=== PATIENT | male | born 1990 | race Caucasian/White ===

== ENCOUNTER 2024-12-08 06:59 | Emergency (ER) | payer OTHER, SELFPAY ==
[2024-12-08 07:03] VITALS: BP 150/91; PULSE 66; TEMP 36.8; O2SAT 99; BMI 26.2
--- NOTE | 2024-12-08 07:15 | ED.GENADUL1 ---
HPI HPI - General Adult General Chief complaint: Back Pain/Injury Stated complaint: MID BACK PAIN Time Seen by Provider: 12/08/24 07:08 Source: patient Mode of arrival: walk-in Limitations: no limitations History of Present Illness HPI narrative: 34-year-old male presents to the emergency department for chief complaint of back pain. It is in his thoracic area and mostly at the midline. Last night between 7 and 8:00 PM he had a backpack bug spray on with a cylinder of liquid bug spray and he was spraying it. When he took it off he felt a little bit of discomfort in the thoracic area. When he woke up at 2:00 this morning to use the bathroom he felt increased pain. He did not fall and he has no weakness or numbness in his arms or legs. No neck pain or lower back pain. No chest pain or shortness of breath. Related Data Home Medications ?Medication ?Instructions ?Recorded ?Confirmed metoprolol tartrate 25 mg tablet 25 mg PO Q12H 12/08/24 12/08/24 Previous Rx's ?Medication ?Instructions ?Recorded etodolac 300 mg capsule 300 mg PO Q6H PRN pain #20 caps 12/08/24 methocarbamol 750 mg tablet 750 mg PO Q8H #20 tabs 12/08/24 Allergies Allergy/AdvReac Type Severity Reaction Status Date / Time No Known Drug Allergies Allergy Verified 12/08/24 07:07 Opioid HPI Opioid Management Most Recent Opioid Data: Last Pain Scale 4 Today, 07:03 Review of Systems ROS Narrative A ten point review of systems is negative except as noted above. PFSH PFSH Social History Little interest or pleasure in doing things: not at all Feeling down, depressed, or hopeless: not at all Exam Narrative Exam Narrative: Nurses note and vital signs reviewed and patient is not hypoxic. General: The patient appears well and in no apparent distress. Patient is resting comfortably on cart. Skin: Warm, dry, no pallor noted. There is no rash noted. Head: Normocephalic, atraumatic Eye: Normal conjunctiva, no drainage Ears, Nose, Mouth, and Throat: oral mucosa is moist. Nares patent. Cardiovascular: Regular Rate and Rhythm Respiratory: Patient is in no distress, no accessory muscle use, lungs are clear to auscultation, no wheezing, rales or rhonchi Back: No bruise or rash. He has no tenderness in the cervical or lumbar spine. Arms and legs have full range of motion. GI: Soft and nontender Musculoskeletal: The patient has no evidence of calf tenderness, no pitting edema, symmetrical pulses noted bilaterally Neurological: Alert and oriented, normal speech Psychiatric: Cooperative Constitutional Vital Signs, click to edit/add: Last Vital Signs Temp 98.2 F 12/08/24 07:03 Pulse 66 12/08/24 07:03 Resp 18 12/08/24 07:03 BP 150/91 H 12/08/24 07:03 Pulse Ox 99 12/08/24 07:03 O2 Del Method Room Air 12/08/24 07:03 Course Vital Signs Vital signs: Vital Signs Temperature 98.2 F 12/08/24 07:03 Pulse Rate 66 12/08/24 07:03 Respiratory Rate 18 12/08/24 07:03 Blood Pressure 150/91 H 12/08/24 07:03 Pulse Oximetry 99 12/08/24 07:03 Oxygen Delivery Method Room Air 12/08/24 07:03 Temperature 98.2 F 12/08/24 07:03 Pulse Rate 66 12/08/24 07:03 Respiratory Rate 18 12/08/24 07:03 Blood Pressure 150/91 H 12/08/24 07:03 Pulse Oximetry 99 12/08/24 07:03 Oxygen Delivery Method Room Air 12/08/24 07:03 Medical Decision Making MDM Narrative Medical decision making narrative: X-rays are negative and he is treated symptomatically. He was offered IM Toradol but did not want an injection. Treatment diagnosis and follow-up were discussed with the patient. My clinical impression is that this is musculoskeletal in nature. Differential Diagnosis Differential Diagnosis: Pain, compression fracture Imaging Data Thoracic spine x-ray: Radiologist's impression: No acute findings Discharge Plan Discharge Chief Complaint: Back Pain/Injury Clinical Impression: Strain of muscle at thorax level Patient Disposition: Home, Self-Care Time of Disposition Decision: 09:30 Condition: Good Mode of Transportation: Private Vehicle Prescriptions / Home Meds: New etodolac 300 mg capsule 300 mg PO Q6H PRN (Reason: pain) Qty: 20 0RF methocarbamol 750 mg tablet 750 mg PO Q8H Qty: 20 0RF No Action metoprolol tartrate 25 mg tablet 25 mg PO Q12H Print Language: Malaysian Instructions: Muscle Strain (ED) Referrals: Kt Holbrook MD [Primary Care Provider, Family Practice] - 1 week Discharge Date/Time: 12/08/24 09:39
== END 2024-12-08 09:39 | disposition home or self-care (01) ==
PROVIDERS: Emergency Provider Emergency Medicine; PCP Family Medicine
DX: S29.012A Strain of muscle and tendon of back wall of thorax, initial encounter (principal); M54.6 Pain in thoracic spine; X50.0XXA Overexertion from strenuous movement or load, initial encounter
CPT/HCPCS: 72070; 99283

== ENCOUNTER 2025-02-28 17:05 | Emergency (ER) | payer OTHER, SELFPAY ==
[2025-02-28] VITALS (10 sets, daily range): BP systolic 143; BP diastolic 85; PULSE 74–103; TEMP 37.2; O2SAT 98; BMI 23.7
--- NOTE | 2025-02-28 17:18 | XR_ITS ---
[place] [id number] Patient Name: ROSETTA SALMERON MRN: [id number] date: 1990 Sex: M Assigned Patient Location: ED.MAIN Current Patient Location: ED.MAIN Accession/Order Number: [id number] Exam Date: 02/28/2025 18:57 Report Date: 02/28/2025 18:58 At the request of: ADIA COX Procedure: XR chest 2V Plain film chest 2 view HISTORY: Left-sided chest pain for 3 days COMPARISON: None FINDINGS: SUPPORT DEVICES: None POSTSURGICAL CHANGES: None HEART: Within normal limits PULMONARY MARY: Within normal limits MEDIASTINUM: Unremarkable LUNGS AND PLEURA: No acute lung process, pleural effusion or pneumothorax identified. BONY STRUCTURES: Intact ADDITIONAL FINDINGS None XR/XR chest 2V IMPRESSION: No acute process. Impression dictated by: Andrea Castañeda M.D. 02/28/2025 6:58 PM Dictation Location[facility] Electronically authenticated by: [id number] Y Date: 02/28/2025 18:58
--- NOTE | 2025-02-28 17:18 | ECG_ITS ---
[facility] Test Date: 2025-02-28 Pat Name: ROSETTA SALMERON Department: Room: - Gender: Male Size Marker: : 1990 Requested By: [id number] Order Number: [id number] Reading MD: YOVANNY FLORES M.D. Measurements Intervals Bertha Rate: 87 P: 43 [place]: 144 QRS: 89 QRSD: 102 T: 30 QT: 350 QTc: 394 Interpretive Statements 1100 Sinus rhythm 4068 Nonspecific Twave abnormality 9130 borderline ECG Compared to ECG 06/04/2020 08:52:15 Sinus arrhythmia no longer present Right-axis deviation no longer present Electronically Signed On 02-28-2025 20:59:15 EDT by YOVANNY FLORES M.D.
[2025-02-28 17:36] LABS: Hematocrit 37.4 % (42.0-54.0); Hemoglobin 13.5 g/dL (14.0-18.0); Immature Granulocytes Abs Auto 0.01 10^3/uL (0.00-0.03); Immature Granulocytes Pct Auto 0.2 % (0.0-0.5); Lymphocytes Absolute Auto 1.6 10^3/uL (1.2-3.8); Mean Corpuscular HGB Conc 36.1 g/dL (29.9-35.2); Mean Corpuscular Hemoglobin 31.3 pg (25.9-34.0); Mean Corpuscular Volume 86.8 fL (80.0-94.0); Platelet Count 281 10^3/uL (150-450); Red Blood Count 4.31 10^6/uL (4.70-6.10); White Blood Count 6.5 10^3/uL (4.0-11.0)
[2025-02-28 17:51] LABS: Anion Gap 7.7
[2025-02-28 17:54] LABS: Alanine Aminotransferase 22 U/L (16-63); Albumin Globulin Ratio 1.2; Albumin Level 4.2 g/dL (3.4-5.0); Alkaline Phosphatase 73 U/L (46-116); Aspartate Amino Transferase 15 U/L (15-37); Blood Urea Nitrogen 16.0 mg/dL (7.0-18.0); Calcium 8.8 mg/dL (8.5-10.1); Carbon Dioxide 28.0 mmol/L (21.0-32.0); Chloride 105 mmol/L (98-107); Estimated GFR (African America >60 (>=60 mL/min/1.73m^2); Estimated GFR (Non-African Ame >60 (>=60 mL/min/1.73m^2); Globulin 3.6 g/dL; Glucose 147 mg/dL (74-106); Potassium 3.7 mmol/L (3.5-5.1); Sodium 137 mmol/L (136-145); Total Protein 7.8 g/dL (6.4-8.2)
[2025-02-28 17:56] LABS: INR 1.00; Partial Thromboplastin Time 27.4 sec (22.3-36.2); Prothrombin Time 10.6 sec (9.0-11.6)
--- NOTE | 2025-02-28 18:00 | ED.CHESTPAI1 ---
HPI - Chest Pain General Chief Complaint: Chest Pain Stated Complaint: CHEST PAIN Time Seen by Provider: 02/28/25 17:18 Source: patient Mode of arrival: walk-in Limitations: no limitations History of Present Illness HPI narrative: 34-year-old with chief complaint of chest wall pain. Patient states she has had pain on and off for the last several days. States occasionally pain radiates across the left side of his chest and down into his arm. Patient is afebrile nontoxic-appearing. He states he has no pain at this time. He has a history of hypertension but denies any known cardiac history. The pain is worsened with deep inspiration. He does deny any recent upper respiratory infections or any musculoskeletal injuries. He is otherwise healthy no acute distress. Related Data Home Medications ?Medication ?Instructions ?Recorded ?Confirmed metoprolol tartrate 25 mg tablet 25 mg PO Q12H 12/08/24 02/28/25 Allergies Allergy/AdvReac Type Severity Reaction Status Date / Time No Known Drug Allergies Allergy Verified 02/28/25 17:12 Review of Systems ROS Status of ROS 10 or more systems reviewed and unremarkable except as noted in history and below PFSH PFSH Social History Little interest or pleasure in doing things: not at all Feeling down, depressed, or hopeless: not at all Exam Narrative Exam Narrative: All Systems are negative except as noted/marked.All systems reviewed and otherwise negative Nurses note and vital signs reviewed and patient is not hypoxic. General: The patient appears well and in no apparent distress. Patient is resting comfortably on cart. Skin: Warm, dry, no pallor noted. There is no rash noted. Head: Normocephalic, atraumatic Eye: Normal conjunctiva, no drainage, EOMI. PERRL Ears, Nose, Mouth, and Throat: oral mucosa is moist. Nares patent. Mouth without vesicles. Ear canals patent. Tm's without Erythema Cardiovascular: Regular Rate and Rhythm Respiratory: Patient is in no distress, no accessory muscle use, lungs are clear to auscultation, no wheezing, rales or rhonchi Back: non-tender, no CVA tenderness bilaterally to percussion. GI: Normal bowel sounds, no tenderness to palpation, no masses appreciated. No rebound, guarding, or rigidity noted. Musculoskeletal: The patient has no evidence of calf tenderness, no pitting edema, symmetrical pulses noted bilaterally Neurological: A&O x4, normal speech Psychiatric: Cooperative Constitutional Vital Signs, click to edit/add: Last Vital Signs Temp 98.9 F 02/28/25 17:13 Pulse 98 H 02/28/25 17:13 Resp 18 02/28/25 17:13 BP 143/85 H 02/28/25 17:13 Pulse Ox 98 02/28/25 17:13 O2 Del Method Room Air 02/28/25 17:13 Course Vital Signs Vital signs: Vital Signs Temperature 98.9 F 02/28/25 17:13 Pulse Rate 98 H 02/28/25 17:13 Respiratory Rate 18 02/28/25 17:13 Blood Pressure 143/85 H 02/28/25 17:13 Pulse Oximetry 98 02/28/25 17:13 Oxygen Delivery Method Room Air 02/28/25 17:13 Temperature 98.9 F 02/28/25 17:13 Pulse Rate 98 H 02/28/25 17:13 Respiratory Rate 18 02/28/25 17:13 Blood Pressure 143/85 H 02/28/25 17:13 Pulse Oximetry 98 02/28/25 17:13 Oxygen Delivery Method Room Air 02/28/25 17:13 MDM - Chest Pain MDM Narrative Medical decision making narrative: 34-year-old with chief complaint of chest wall pain. Patient states she has had pain on and off for the last several days. States occasionally pain radiates across the left side of his chest and down into his arm. Patient is afebrile nontoxic-appearing. He states he has no pain at this time. He has a history of hypertension but denies any known cardiac history. The pain is worsened with deep inspiration. He does deny any recent upper respiratory infections or any musculoskeletal injuries. He is otherwise healthy no acute distress. Patient presented to the emergency room with chief complaint of chest pain. Patient's pain had been reported to be in the left side of chest. He states that pain was worsened with deep inspiration. Upon arrival to the emergency room, IV was established. Blood was obtained. CBC CMP and troponin were all obtained. Patient's troponin is negative. He has been having pain for the last several days. The pain is not worsened by movement or palpation of the chest but does hurt to take in a deep breath. Patient vital signs stable he is afebrile. Chest x-ray shows no acute distress no pneumothorax. I believe pain is due to costochondritis or musculoskeletal pain. Patient instructed to continue with anti-inflammatory medication and follow-up with primary care physician. Differential Diagnosis Differential diagnosis: Likely pneumothorax, costochondritis and chest pain Medical Records Data Attestation: I reviewed the patient's medical records. Lab Data Attestation: I reviewed the patient's lab results. Labs: Lab Results 02/28/25 Range/Units 17:25 WBC 6.5 (4.0-11.0) 10^3/uL RBC 4.31 L (4.70-6.10) 10^6/uL Hgb 13.5 L (14.0-18.0) g/dL Hct 37.4 L (42.0-54.0) % MCV 86.8 (80.0-94.0) fL MCH 31.3 (25.9-34.0) pg MCHC 36.1 H (29.9-35.2) g/dL RDW 13.2 (11.0-15.0) % Plt Count 281 (150-450) 10^3/uL MPV 9.6 (9.5-13.5) fL Neut % (Auto) 67.5 (43.0-75.0) % Lymph % (Auto) 23.7 (20.5-60.0) % [place] % (Auto) 7.2 (1.7-12.0) % Eos % (Auto) 0.8 L (0.9-7.0) % Baso % (Auto) 0.6 (0.2-2.0) % Neut # (Auto) 4.4 (1.4-6.5) 10^3/uL Lymph # (Auto) 1.6 (1.2-3.8) 10^3/uL [place] # (Auto) 0.5 (0.3-0.8) 10^3/uL Eos # (Auto) 0.1 (0.0-0.7) 10^3/uL Baso # (Auto) 0.0 (0.0-0.1) 10^3/uL Abs Immat Gran (auto) 0.01 (0.00-0.03) 10^3/uL Imm/Tot Granulo (auto) 0.2 (0.0-0.5) % PT 10.6 (9.0-11.6) sec INR 1.00 APTT 27.4 (22.3-36.2) sec D-Dimer 0.20 (<=0.59) mg/L FEU Sodium 137 (136-145) mmol/L Potassium 3.7 (3.5-5.1) mmol/L Chloride 105 (98-107) mmol/L Carbon Dioxide 28.0 (21.0-32.0) mmol/L Anion Gap 7.7 BUN 16.0 (7.0-18.0) mg/dL Creatinine 1.18 (0.70-1.30) mg/dL Est GFR ( Amer) >60 (>=60 mL/min/1.73m^2) Est GFR (Non-Af Amer) >60 (>=60 mL/min/1.73m^2) BUN/Creatinine Ratio 13.6 Glucose 147 H (74-106) mg/dL Calcium 8.8 (8.5-10.1) mg/dL Total Bilirubin 0.5 (0.2-1.0) mg/dL AST 15 (15-37) U/L ALT 22 (16-63) U/L Alkaline Phosphatase 73 (46-116) U/L Troponin I High Sens <4.0 L (4.0-76.1) pg/mL Total Protein 7.8 (6.4-8.2) g/dL Albumin 4.2 (3.4-5.0) g/dL Globulin 3.6 g/dL Albumin/Globulin Ratio 1.2 ECG Data Interpretation: 1719 EKG shows normal sinus rhythm with a rate of 87 bpm [place] interval 144 ms QRS duration are 2 ms, no ST depression or elevation, no STEMI Heart Score History: Slightly/Non-Suspicious ECG: Normal Age: <45 years Risk Factors: No Risk Factors Troponin: <Normal Limit Total Heart Score Recommendations & Risks:: 0 Discharge Plan Discharge Chief Complaint: Chest Pain Clinical Impression: Strain of muscle at thorax level, Costalchondritis Patient Disposition: Home, Self-Care Time of Disposition Decision: 18:04 Condition: Good Prescriptions / Home Meds: No Action metoprolol tartrate 25 mg tablet 25 mg PO Q12H Print Language: Swiss Instructions: Muscle Strain (ED), Costochondritis (ED) Referrals: Kt Holbrook MD [Primary Care Provider, Family Practice] - 1 week
[2025-02-28] MEDS: KETOROLAC TROMETHAMINE 30 MG/ML VIAL IVP (18:01)
== END 2025-02-28 18:23 | disposition home or self-care (01) ==
PROVIDERS: Physician Assistant; Emergency Provider Emergency Medicine; PCP Family Medicine
DX: S29.019A Strain of muscle and tendon of unspecified wall of thorax, initial encounter (principal); M94.0 Chondrocostal junction syndrome [Tietze]; R07.89 Other chest pain
CPT/HCPCS: 36415; 71046; 80053; 84484; 85025; 85378; 85610; 85730; 93005; 96374; 99285; J1885